=== PATIENT | female | born 1960 | race Caucasian/White ===

== ENCOUNTER 2019-05-12 14:58 | Observation (INO) | payer OTHER ==
[~2019-05-12] VITALS: Ht 160 cm; Wt 74.4 kg
[2019-05-12] MEDS ORDERED: 0.9 % SOD CHL for STERILE FIELD 10 ML DISP.SYRIN. ONE (16:25)
--- NOTE | 2019-05-12 16:50 | PHYS DOC ---
Past Medical History Past Medical History: Cancer Additional Past Medical Histor: BREAST CANCER Additional Past Surgical Histo: BILATERAL MASTECTOMY Alcohol Use: None Drug Use: None Adult General Chief Complaint Chief Complaint: DIZZY/LIGHT HEADED HPI HPI Patient is a 58-year-old female who presents to the emergency department for evaluation. The patient states that she has a history of breast cancer in the past, and developed a recurrence of breast cancer, with spread to her left chest wall, and underwent a bilateral mastectomy about 3 weeks ago. She states that she developed some paresthesias in the right side of her face, which, over 15 minutes, progressed to involve the entire right side of her body. She did not lose any motor function but reported difficulty ambulating with her right leg secondary to the paresthesias and decreased sensation. She denies any pain, including a headache, or any vision changes. She does not have any true muscle weakness. She denies any new dizziness but reports chronic dizziness. There are no alleviating or exacerbating factors to her symptoms otherwise. She denies any chest pain, headache currently, abdominal pain, nausea, or vomiting. Review of Systems Review of Systems Constitutional: Denies fever or chills [] Eyes: Denies change in visual acuity, redness, or eye pain [] HENT: Denies nasal congestion or sore throat [] Respiratory: Denies cough or shortness of breath [] Cardiovascular:The patient denies any shortness of breath, chest pain, palpitations, or orthopnea [] GI: Denies abdominal pain, nausea, vomiting, bloody stools or diarrhea [] : Denies dysuria or hematuria [] Musculoskeletal: Denies back pain or joint pain [] Integument: Denies rash or skin lesions [] Neurologic: No additional information not addressed in HPI [] Endocrine: Denies polyuria or polydipsia [] All other systems were reviewed and found to be within normal limits, except as documented in this note. Current Medications Current Medications Current Medications Medications (Trade) Dose Ordered Sig/Gudelia Start Time Stop Time Status Last Admin Dose Admin Info (CONTRAST GIVEN -- Rx MONITORING) 1 each PRN DAILY PRN 05/12/19 18:30 05/14/19 18:29 Iohexol (Omnipaque 350 Mg/ml) 75 ml 1X ONCE 05/12/19 18:15 05/12/19 18:18 DC 05/12/19 18:18 75 ML Sodium Chloride (NORMAL SALINE FLUSH for STERILE FIELD) 10 ml STK-MED ONCE 05/12/19 16:25 05/12/19 16:26 DC Allergies Allergies Allergies Coded Allergies Type Severity Reaction Last Updated Verified No Known Drug Allergies 05/12/19 No Physical Exam Physical Exam PHYSICAL EXAM: CONSTITUTIONAL: Well developed, well nourished HEAD: normocephalic, atraumatic EENT: PERRL, EOMI. Conjunctivae normal color, sclerae non-icteric; moist mucous membranes. NECK: Supple, non-tender; no meningismus. LUNGS: Lungs CTA, breathing even and unlabored. Normal air movement. HEART: Regular rate and rhythm, no murmur CHEST: No deformity; non-tender ABDOMEN: The abdomen is soft, and non-tender, no masses or bruits. EXTREM: Normal ROM; no deformity, no calf tenderness. Normal pulses palpable in all extremities. There is no pedal edema. SKIN: No rash; no diaphoresis NEURO: Alert; normal speech and cognition; CN's grossly intact; strength grossly intact without focal deficit. There is no reproducible sensory deficit although the patient does report some generalized subjective paresthesias on the right side of her body. Plupfk-[id number] and heel cuba testing is normal. Visual Michael are intact by confrontation. NIH stroke scale score is 0. BACK: No CVA TTP. Current Patient Data Vital Signs Vital Signs Date Time Temp Pulse Resp B/P (MAP) Pulse Ox O2 Delivery O2 Flow Rate FiO2 05/12/19 15:41 97.8 94 16 147/73 (97) 98 Room Air 97.8 Lab Values Laboratory Tests Test 05/12/19 17:20 White Blood Count 6.9 x10^3/uL (4.0-11.0) Red Blood Count 4.17 x10^6/uL (3.50-5.40) Hemoglobin 13.8 g/dL (12.0-15.5) Hematocrit 40.3 % (36.0-47.0) Mean Corpuscular Volume 97 fL (79-100) Mean Corpuscular Hemoglobin 33 pg (25-35) Mean Corpuscular Hemoglobin Concent 34 g/dL (31-37) Red Cell Distribution Width 13.6 % (11.5-14.5) Platelet Count 209 x10^3/uL (140-400) Neutrophils (%) (Auto) 66 % (31-73) Lymphocytes (%) (Auto) 23 % (24-48) L Monocytes (%) (Auto) 8 % (0-9) Eosinophils (%) (Auto) 2 % (0-3) Basophils (%) (Auto) 1 % (0-3) Neutrophils # (Auto) 4.6 x10^3/uL (1.8-7.7) Lymphocytes # (Auto) 1.6 x10^3/uL (1.0-4.8) Monocytes # (Auto) 0.6 x10^3/uL (0.0-1.1) Eosinophils # (Auto) 0.1 x10^3/uL (0.0-0.7) Basophils # (Auto) 0.1 x10^3/uL (0.0-0.2) Sodium Level 141 mmol/L (136-145) Potassium Level 3.9 mmol/L (3.5-5.1) Chloride Level 104 mmol/L (98-107) Carbon Dioxide Level 27 mmol/L (21-32) Anion Gap 10 (6-14) Blood Urea Nitrogen 14 mg/dL (7-20) Creatinine 0.7 mg/dL (0.6-1.0) Estimated GFR (Cockcroft-Gault) 86.6 BUN/Creatinine Ratio 20 (6-20) Glucose Level 101 mg/dL (70-99) H Calcium Level 9.0 mg/dL (8.5-10.1) Magnesium Level 2.0 mg/dL (1.8-2.4) Total Bilirubin 0.2 mg/dL (0.2-1.0) Aspartate Amino Transferase (AST) 24 U/L (15-37) Alanine Aminotransferase (ALT) 38 U/L (14-59) Alkaline Phosphatase 89 U/L (46-116) Troponin I Quantitative < 0.017 ng/mL (0.000-0.055) Total Protein 6.9 g/dL (6.4-8.2) Albumin 4.1 g/dL (3.4-5.0) Albumin/Globulin Ratio 1.5 (1.0-1.7) Laboratory Tests 05/12/19 17:20 Laboratory Tests 05/12/19 17:20 EKG EKG Normal sinus rhythm with a normal rate, normal axis, normal intervals, there are no acute ischemic ST/T changes. There is baseline artifact present Radiology/Procedures Radiology/Procedures [] Course & Med Decision Making Course & Med Decision Making Pertinent Labs and Imaging studies reviewed. (See chart for details) []7:00 PM: Preliminary report from radiology shows no acute abnormality on the patient's CT, full reportedly follow-up. Discussed the case with the hospitalist who will admit the patient for further evaluation Dragon Disclaimer Dragon Disclaimer This electronic medical record was generated, in whole or in part, using a voice recognition dictation system. Departure Departure Impression: Primary Impression: Paresthesias Disposition: ADMITTED INPATIENT Admitting Physician: ZACHARIAH Condition: STABLE Referrals: UNKNOWN PCP NAME (PCP) CYNTHIA HUSAIN MD May 12, 2019 16:50
[2019-05-12 17:27] LABS: BASO # 0.1 x10^3/uL (0.0-0.2); BASO % 1 % (0-3); EOS # 0.1 x10^3/uL (0.0-0.7); EOS % 2 % (0-3); HEMATOCRIT 40.3 % (36.0-47.0); HEMOGLOBIN 13.8 g/dL (12.0-15.5); LYMPH # 1.6 x10^3/uL (1.0-4.8); LYMPH % 23 % (24-48); MEAN CORPUSCULAR HEMOGLOBIN 33 pg (25-35); MEAN CORPUSCULAR HGB CONC 34 g/dL (31-37); MEAN CORPUSCULAR VOLUME 97 fL (79-100); MONO # 0.6 x10^3/uL (0.0-1.1); MONO % 8 % (0-9); NEUT # 4.6 x10^3/uL (1.8-7.7); NEUT % 66 % (31-73); PLATELET COUNT 209 x10^3/uL (140-400); RED BLOOD COUNT 4.17 x10^6/uL (3.50-5.40); RED CELL DISTRIBUTION WIDTH 13.6 % (11.5-14.5); WHITE BLOOD COUNT 6.9 x10^3/uL (4.0-11.0)
[2019-05-12 17:44] LABS: CREATININE 0.7 mg/dL (0.6-1.0); GFR 86.6; POTASSIUM 3.9 mmol/L (3.5-5.1)
[2019-05-12 17:49] LABS: ALBUMIN 4.1 g/dL (3.4-5.0); ALBUMIN/GLOBULIN RATIO 1.5 (1.0-1.7); TOTAL BILIRUBIN 0.2 mg/dL (0.2-1.0); TOTAL PROTEIN 6.9 g/dL (6.4-8.2)
[2019-05-12] MEDS ORDERED: IOHEXOL 350 MG/ML 100 ML VIAL. IV ONE (18:15)
[2019-05-12] MEDS ORDERED: CONTRAST GIVEN. MC PRN (18:30)
--- NOTE | 2019-05-12 18:49 | RAD ---
CT HEAD WO/W CONTRAST History: Right-sided paresthesias, history of breast cancer Comparison: None. Technique: Pre and postcontrast CT imaging was performed of the head. Exposure: One or more of the following individualized dose reduction techniques were utilized for this examination: 1. Automated exposure control 2. Adjustment of the mA and/or kV according to patient size 3. Use of iterative reconstruction technique. Findings: There is no evidence of acute intracranial hemorrhage. There is no intra-axial mass effect, midline shift, extra-axial fluid collection. No convincing nodular parenchymal or leptomeningeal enhancement is identified by CT. There is probable small left frontal developmental venous anomaly. Ventricular size is within normal limits. There is mild prominence of bifrontal subarachnoid spaces. Mastoid air cells and visualized paranasal sinuses are aerated. No acute calvarial abnormality is identified. There is small left frontal osteoma above the left orbit. Impression: 1. No acute intracranial abnormality is identified. No convincing abnormal intracranial enhancement is identified by CT, smaller lesions better detected by MRI. Electronically signed by: Daniel Todd MD (05/12/2019 6:46 PM) [facility]
--- NOTE | 2019-05-12 19:12 | RAD ---
Portable AP chest. HISTORY: Stroke like symptoms AP view was taken of the chest. The Port-A-Cath on the right in good position. Heart is normal in size. There is no pleural effusion. There are no confluent infiltrates. IMPRESSION: 1. No acute infiltrates. Electronically signed by: Ancelmo Galvin MD (05/12/2019 7:08 PM) [id number]
[2019-05-12] MEDS ORDERED: ASPIRIN CHEWABLE 81 MG TABLET. PO ONE (19:15)
--- NOTE | 2019-05-12 19:20 | RAD ---
STUDY: CT angiography of the head and neck INDICATION: Right-sided paresthesias. COMPARISON: None. TECHNIQUE: Axial CT imaging of the head and neck utilizing angiography protocol and performed after the intravenous administration of 75 cc Omnipaque 350 contrast. Multiplanar reformats and 3D MIP acquisitions were obtained. Encountered areas of stenosis are measured per NASCET criteria. One or more of the following individualized dose reduction techniques were utilized for this examination: 1. Automated exposure control 2. Adjustment of the mA and/or kV according to patient size 3. Use of iterative reconstruction technique. FINDINGS: CTA NECK: Patent great vessel origins. Patent extracranial vertebral arteries. Patent bilateral common carotid arteries. Calcified and noncalcified atheromatous plaque at both carotid bulbs without flow-limiting stenosis. CTA HEAD: Patent intracranial internal carotid arteries through the terminus bilaterally. 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 No flow-limiting stenosis, branch vessel occlusion or discrete aneurysm seen to involve the middle or anterior cerebral arteries. Trifurcated anterior cerebral artery configuration noted. Patent intracranial vertebral arteries both of which contribute to basilar flow. The basilar artery is patent. No flow-limiting stenosis, branch vessel occlusion or discrete aneurysm seen to involve the posterior cerebral circulation. Patent dural sinuses and major intracerebral veins. MISCELLANEOUS: Right chest wall Port-A-Cath. Multinodular thyroid. The left thyroid lobe nodules the largest measuring 1.6 cm. The right thyroid lobe nodule measures up to 1.2 cm. No cervical chain adenopathy. Scattered degenerative changes throughout the cervical spine suspected moderate central canal stenosis at C5-C6 more so than C4-C5. Bony neural foraminal encroachment at multiple levels. Small left superior orbital rim osteoma. Small bony excrescence off the inner table of the left frontal calvarium. Very small calvarial lucency in the region of the coronal suture on the left felt unlikely to represent a significant finding given no similar abnormality seen elsewhere. IMPRESSION: 1. No vascular abnormality throughout the neck or head to account for the patient's reported paresthesias. No flow-limiting stenosis or branch vessel occlusion. 2. 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 3. Left thyroid nodule measuring just over 1.5 cm. Given size, eventual thyroid sonography is recommended. Small right thyroid lobe nodule noted. 4. Additional chronic findings as above. Electronically signed by: CHI GIL MD (05/12/2019 7:17 PM) [id number]
--- NOTE | 2019-05-12 20:30 | NUR ---
The patient, ELIZABETH RICHARD, 58 y/o, F admitted by KEITH BENAVIDEZ MD, was given written information regarding hospital policies, unit procedures and contact persons. Valuables were checked and left in the room.
--- NOTE | 2019-05-12 21:44 | PDOC1 ---
History and Physical Date of Admission Date of Admission DATE: 05/12/19 TIME: 21:39 Identification/Chief Complaint Chief Complaint Right sided numbness Source Source: Patient History of Present Illness History of Present Illness Ms [id number] female w/ PMHx breast cancer 2018 now s/p bilateral mastectomy 3 weeks ago noted also with invasion of her left chest wall. She states that she developed some paresthesias in the right side of her face, which, over 15 minutes, progressed to involve the entire right side of her body earlier today on her way out of work. She did not lose any motor function but reported difficulty ambulating with her right leg secondary to the paresthesias and decreased sensation and did have difficulty lifting it during the entire 30 minute period it took until resolution. She denies any pain, including a headache, or any vision changes, no loss of bowel or bladder function. No prior neurologic history. She denies any new dizziness but reports chronic dizziness. There are no alleviating or exacerbating factors to her symptoms otherwise. She denies any chest pain, headache currently, abdominal pain, nausea, or vomiting. CT head in ED negative for intracranial pathology and CTA as well. Incidental 1.5cm thyroid nodule was noted. She is very hesitant to have MRI at our facility given her symptoms resolved and she is out of insurance network. Wishes to discharge in AM and have MRI outpatient, preferably at [facility] where her oncologist, Dr. Rebollar is located. She is somewhat anxious and relates her history of breast cancer over the past year and the diagnosis of her son with Wong Sarcoma. Past Medical History Cardiovascular: No pertinent hx Pulmonary: No pertinent hx GI: No pertinent hx Heme/Onc: Cancer (Breast cancer) Hepatobiliary: No pertinent hx Psych: No pertinent hx Rheumatologic: No pertinent hx Infectious disease: No pertinent hx ENT: No pertinent hx Renal/: No pertinent hx Endocrine: No pertinent hx Dermatology: No pertinent hx Past Surgical History Past Surgical History: Mastectomy (Bilateral) Family History Family History: Cancer (Wong sarcoma) Social History Smoke: No ALCOHOL: none Drugs: None Current Problem List Problem List Problems Medical Problems: (1) Paresthesias Status: Acute Current Medications Current Medications Current Medications Sodium Chloride (NORMAL SALINE FLUSH for STERILE FIELD) 10 ml STK-MED ONCE .ROUTE ; Start 05/12/19 at 16:25; Stop 05/12/19 at 16:26; Status DC Iohexol (Omnipaque 350 Mg/ml) 75 ml 1X ONCE IV Last administered on 05/12/19at 18:18; Start 05/12/19 at 18:15; Stop 05/12/19 at 18:18; Status DC Info (CONTRAST GIVEN -- Rx MONITORING) 1 each PRN DAILY PRN MC SEE COMMENTS; Start 05/12/19 at 18:30; Stop 05/14/19 at 18:29 Aspirin (Children'S Aspirin) 324 mg 1X ONCE PO Last administered on 05/12/19at 19:24; Start 05/12/19 at 19:15; Stop 05/12/19 at 19:16; Status DC Trazodone HCl (Desyrel) 150 mg QHS PO ; Start 05/12/19 at 22:00 Allergies Allergies: Coded Allergies: No Known Drug Allergies (Unverified , 05/12/19) ROS General: No: Chills, Night Sweats, Fatigue, Malaise, Appetite, Other PSYCHOLOGICAL ROS: YES: Anxiety; No: Behavioral Disorder, Concentration difficultie, Decreased libido, Depression, Disorientation, Hallucinations, Hostility, Irritablity, Memory difficulties, Mood Swings, Obsessive thoughts, Physical abuse, Sexual abuse, Sleep disturbances, Suicidal ideation, Other Eyes: No Blurry vision, No Decreased vision, No Double vision, No Dry eyes, No Excessive tearing, No Eye Pain, No Itchy Eyes, No Loss of vision, No Photophobia, No Scotomata, No Uses contacts, No Uses glasses, No Other HEENT: No: Heacaches, Visual Changes, Hearing change, Nasal congestion, Nasal discharge, Oral lesions, Sinus pain, Sore Throat, Epistaxis, Sneezing, Snoring, Tinnitus, Vertigo, Vocal changes, Other ALLERGY AND IMMUNOLOGY: No: Hives, Insect Bite Sensitivity, Itchy/Watery Eyes, Nasal Congestion, Post Nasal Drip, Seasonal Allergies, Other Hematological and Lymphatic: No: Bleeding Problems, Blood Clots, Blood Transfusions, Brusing, Night Sweats, Pallor, Swollen Lymph Nodes, Other ENDOCRINE: No: Breast Changes, Galactorrhea, Hair Pattern Changes, Hot Flashes, Malaise/lethargy, Mood Swings, Palpitations, Polydipsia/polyuria, Skin Changes, Temperature Intolerance, Unexpected Weight Changes, Other Breast: No New/Changing Breast Lumps, No Nipple changes, No Nipple discharge, No Other Respiratory: No: Cough, Hemoptysis, Orthopnea, Pleuritic Pain, Shortness of breath, SOB with excertion, Sputum Changes, Stridor, Tachypnea, Wheezing, Other Cardiovascular: No Chest Pain, No Palpitations, No Orthopnea, No Paroxysmal Noc. Dyspnea, No Edema, No Lt Headedness, No Other Gastrointestinal: No Nausea, No Vomiting, No Abdominal Pain, No Diarrhea, No Constipation, No Melena, No Hematochezia, No Other Genitourinary: No Dysuria, No Frequency, No Incontinence, No Hematuria, No Retention, No Discharge, No Urgency, No Pain, No Flank Pain, No Other, No , No , No , No , No , No , No Musculoskeletal: No Gait Disturbance, No Joint Pain, No Joint Stiffness, No Joint Swelling, No Muscle Pain, No Muscular Weakness, No Pain In:, No Swelling In:, No Other Neurological: No Behavorial Changes, No Bowel/Bladder ControlChng, No Confusion, No Dizziness, No Gait Disturbance, No Headaches, No Impaired Coord/balance, No Memory Loss, No Numbness/Tingling, No Seizures, No Speech Problems, No Tremors, No Visual Changes, No Weakness, No Other Skin: No Dry Skin, No Eczema, No Hair Changes, No Lumps, No Mole Changes, No Mottling, No Nail Changes, No Pruritus, No Rash, No Skin Lesion Changes, No Other, No Acne Physical Exam General: Alert, Oriented X3, Cooperative, No acute distress HEENT: Atraumatic, PERRLA, EOMI, Mucous membr. moist/pink Lungs: Clear to auscultation, Normal air movement Heart: S1S2, RRR, no thrills, no rubs, no gallops, no murmurs, other (Right port-a-cath in chest) Abdomen: Normal bowel sounds, Soft, No tenderness, No hepatosplenomegaly, No masses Rectal Exam: not examined Extremities: No clubbing, No cyanosis, No edema, Normal pulses, No tenderness/swelling Skin: No rashes, No breakdown, No significant lesion Neuro: Normal gait, Normal speech, Strength at 5/5 X4 ext, Normal tone, Sensation intact, Cranial nerves 3-12 NL, Reflexes 2+ Psych/Mental Status: Mental status NL, Mood NL Vitals Vitals Vital Signs Date Time Temp Pulse Resp B/P (MAP) Pulse Ox O2 Delivery O2 Flow Rate FiO2 05/12/19 15:41 97.8 94 16 147/73 (97) 98 Room Air 97.8 Labs Labs Laboratory Tests Test 05/12/19 17:20 White Blood Count 6.9 x10^3/uL (4.0-11.0) Red Blood Count 4.17 x10^6/uL (3.50-5.40) Hemoglobin 13.8 g/dL (12.0-15.5) Hematocrit 40.3 % (36.0-47.0) Mean Corpuscular Volume 97 fL (79-100) Mean Corpuscular Hemoglobin 33 pg (25-35) Mean Corpuscular Hemoglobin Concent 34 g/dL (31-37) Red Cell Distribution Width 13.6 % (11.5-14.5) Platelet Count 209 x10^3/uL (140-400) Neutrophils (%) (Auto) 66 % (31-73) Lymphocytes (%) (Auto) 23 % (24-48) Monocytes (%) (Auto) 8 % (0-9) Eosinophils (%) (Auto) 2 % (0-3) Basophils (%) (Auto) 1 % (0-3) Neutrophils # (Auto) 4.6 x10^3/uL (1.8-7.7) Lymphocytes # (Auto) 1.6 x10^3/uL (1.0-4.8) Monocytes # (Auto) 0.6 x10^3/uL (0.0-1.1) Eosinophils # (Auto) 0.1 x10^3/uL (0.0-0.7) Basophils # (Auto) 0.1 x10^3/uL (0.0-0.2) Sodium Level 141 mmol/L (136-145) Potassium Level 3.9 mmol/L (3.5-5.1) Chloride Level 104 mmol/L (98-107) Carbon Dioxide Level 27 mmol/L (21-32) Anion Gap 10 (6-14) Blood Urea Nitrogen 14 mg/dL (7-20) Creatinine 0.7 mg/dL (0.6-1.0) Estimated GFR (Cockcroft-Gault) 86.6 BUN/Creatinine Ratio 20 (6-20) Glucose Level 101 mg/dL (70-99) Calcium Level 9.0 mg/dL (8.5-10.1) Magnesium Level 2.0 mg/dL (1.8-2.4) Total Bilirubin 0.2 mg/dL (0.2-1.0) Aspartate Amino Transf (AST/SGOT) 24 U/L (15-37) Alanine Aminotransferase (ALT/SGPT) 38 U/L (14-59) Alkaline Phosphatase 89 U/L (46-116) Troponin I Quantitative < 0.017 ng/mL (0.000-0.055) Total Protein 6.9 g/dL (6.4-8.2) Albumin 4.1 g/dL (3.4-5.0) Albumin/Globulin Ratio 1.5 (1.0-1.7) Laboratory Tests Test 05/12/19 17:20 White Blood Count 6.9 x10^3/uL (4.0-11.0) Red Blood Count 4.17 x10^6/uL (3.50-5.40) Hemoglobin 13.8 g/dL (12.0-15.5) Hematocrit 40.3 % (36.0-47.0) Mean Corpuscular Volume 97 fL (79-100) Mean Corpuscular Hemoglobin 33 pg (25-35) Mean Corpuscular Hemoglobin Concent 34 g/dL (31-37) Red Cell Distribution Width 13.6 % (11.5-14.5) Platelet Count 209 x10^3/uL (140-400) Neutrophils (%) (Auto) 66 % (31-73) Lymphocytes (%) (Auto) 23 % (24-48) Monocytes (%) (Auto) 8 % (0-9) Eosinophils (%) (Auto) 2 % (0-3) Basophils (%) (Auto) 1 % (0-3) Neutrophils # (Auto) 4.6 x10^3/uL (1.8-7.7) Lymphocytes # (Auto) 1.6 x10^3/uL (1.0-4.8) Monocytes # (Auto) 0.6 x10^3/uL (0.0-1.1) Eosinophils # (Auto) 0.1 x10^3/uL (0.0-0.7) Basophils # (Auto) 0.1 x10^3/uL (0.0-0.2) Sodium Level 141 mmol/L (136-145) Potassium Level 3.9 mmol/L (3.5-5.1) Chloride Level 104 mmol/L (98-107) Carbon Dioxide Level 27 mmol/L (21-32) Anion Gap 10 (6-14) Blood Urea Nitrogen 14 mg/dL (7-20) Creatinine 0.7 mg/dL (0.6-1.0) Estimated GFR (Cockcroft-Gault) 86.6 BUN/Creatinine Ratio 20 (6-20) Glucose Level 101 mg/dL (70-99) Calcium Level 9.0 mg/dL (8.5-10.1) Magnesium Level 2.0 mg/dL (1.8-2.4) Total Bilirubin 0.2 mg/dL (0.2-1.0) Aspartate Amino Transf (AST/SGOT) 24 U/L (15-37) Alanine Aminotransferase (ALT/SGPT) 38 U/L (14-59) Alkaline Phosphatase 89 U/L (46-116) Troponin I Quantitative < 0.017 ng/mL (0.000-0.055) Total Protein 6.9 g/dL (6.4-8.2) Albumin 4.1 g/dL (3.4-5.0) Albumin/Globulin Ratio 1.5 (1.0-1.7) Images Images CT head - There is no evidence of acute intracranial hemorrhage. There is no intra-axial mass effect, midline shift, extra-axial fluid collection. No convincing nodular parenchymal or leptomeningeal enhancement is identified by CT. There is probable small left frontal developmental venous anomaly. Ventricular size is within normal limits. There is mild prominence of bifrontal subarachnoid spaces. Mastoid air cells and visualized paranasal sinuses are aerated. No acute calvarial abnormality is identified. There is small left frontal osteoma above the left orbit. Impression: 1. No acute intracranial abnormality is identified. No convincing abnormal intracranial enhancement is identified by CT, smaller lesions better detected by MRI. CTA NECK: Patent great vessel origins. Patent extracranial vertebral arteries. Patent bilateral common carotid arteries. Calcified and noncalcified atheromatous plaque at both carotid bulbs without flow-limiting stenosis. CTA HEAD: Patent intracranial internal carotid arteries through the terminus bilaterally. 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 No flow-limiting stenosis, branch vessel occlusion or discrete aneurysm seen to involve the middle or anterior cerebral arteries. Trifurcated anterior cerebral artery configuration noted. Patent intracranial vertebral arteries both of which contribute to basilar flow. The basilar artery is patent. No flow-limiting stenosis, branch vessel occlusion or discrete aneurysm seen to involve the posterior cerebral circulation. Patent dural sinuses and major intracerebral veins. MISCELLANEOUS: Right chest wall Port-A-Cath. Multinodular thyroid. The left thyroid lobe nodules the largest measuring 1.6 cm. The right thyroid lobe nodule measures up to 1.2 cm. No cervical chain adenopathy. Scattered degenerative changes throughout the cervical spine suspected moderate central canal stenosis at C5-C6 more so than C4-C5. Bony neural foraminal encroachment at multiple levels. Small left superior orbital rim osteoma. Small bony excrescence off the inner table of the left frontal calvarium. Very small calvarial lucency in the region of the coronal suture on the left felt unlikely to represent a significant finding given no similar abnormality seen elsewhere. IMPRESSION: 1. No vascular abnormality throughout the neck or head to account for the patient's reported paresthesias. No flow-limiting stenosis or branch vessel occlusion. 2. 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 3. Left thyroid nodule measuring just over 1.5 cm. Given size, eventual thyroid sonography is recommended. Small right thyroid lobe nodule noted. VTE Prophylaxis Ordered VTE Prophylaxis Devices: No VTE Pharmacological Prophylaxi: Yes Assessment/Plan Assessment/Plan A/P: Right leg weakness - transient, resolved on its own. ASA, statin. Consult neurology. Given these TIA symptoms she is at increased risk for another event. Telemetry to r/o cardiac arrhthymia as cause Right sided numbness - as above, resolved without treatment. Will observe Breast cancer - I am not aware of the path, though by history sounds to be stage III with invasion of chest wall. This is her first head imaging. No intracranial masses noted. FEN - General diet PPX - lovenox FULL CODE Dispo - observation for TIA. Patient would prefer outpatient MRI at [facility] KEITH BENAVIDEZ MD May 12, 2019 21:44
[2019-05-12] MEDS ORDERED: traZODone 100 MG TABLET. PO SCH (22:00)
[2019-05-12] MEDS ORDERED: ENOXAPARIN 40 MG/0.4 ML SYRINGE. SQ SCH (22:00)
[2019-05-12 23:36] VITALS: BP 131/76
[2019-05-12] MEDS ORDERED: ATORVASTATIN CALCIUM 40 MG TABLET. PO SCH (23:45)
[2019-05-13 03:37] VITALS: BP 120/68
--- NOTE | 2019-05-13 05:34 | EKG ---
[facility] [address] [place] [address] Test Date: 2019-05-12 Test Time: 16:59:12 Pat Name: ELIZABETH RICHARD Department: Room: Gender: F [employer] Field Service Technician: : 1960 Requested By: CYNTHIA HUSAIN Order Number: [id number] Reading MD: Measurements Intervals [place] Rate: 86 P: 36 GA: 156 QRS: 16 QRSD: 78 T: 53 QT: 368 QTc: 443 Interpretive Statements SINUS RHYTHM NORMAL ECG RI6.01 No previous ECG available for comparison
[2019-05-13 07:55] VITALS: BP 124/79
[2019-05-13] MEDS ORDERED: ASPIRIN 325 MG TABLET PO SCH (08:00)
--- NOTE | 2019-05-13 09:44 | PDOC2 ---
CONSULT Date of Consult Date of Consult DATE: 05/13/19 TIME: 09:33 Reason for consultation: breast cancer Consult: Hematology oncology, Dr. Carmen Walls History of present illness: she is a 58-year-old female with sudden onset of right face numbness, moderate, acute, that progressed and worsened over time to involve her right side with paresthesias and some difficulty walking and slight weakness, this lasted about 30 minutes, completely resolved and improved spo ntaneously, and she does have some bilateral peripheral neuropathy post chemotherapy with history of breast cancer that has remained stable. She would like to be discharged today, CT angiogram of the head and neck did not show anything to account for her symptoms and she has declined MRI here [facility]. Past medical history: early stage triple negative breast cancer of the left breast in 2017 per report treated with lumpectomy and chemotherapy, she declined radiotherapy October 2018 left breast local recurrence of triple negative breast cancer treated with neoadjuvant chemotherapy 6 cycles completed 6 weeks ago followed by bilateral mastectomy completed 3 weeks ago, pending radiotherapy, she tells me she has been genetically tested and negative though does have a son with sarcoma she also has a history of postchemotherapy peripheral neuropathy, incidentally noted thyroid nodule, and is 2 para 2 Past surgical history: breast biopsy left 2, left breast lumpectomy, bilateral mastectomy, port placement, bilateral tubal ligation Allergies: no known drug allergies Medications: See attached list Social history: 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, no tobacco or alcohol or drugs, lives with her son Family history: her son developed Wong sarcoma at 18 years old 4 years ago, they believe he is cured Review of systems: bilateral lower extremity peripheral neuropathy post chemotherapy, ongoing stress related to working full-time with her current treatment, alopecia, otherwise 10 point review of systems negative Physical exam: Vitals reviewed Gen.: Well-nourished and well-developed in no acute distress, alopecia, resting in bed HEENT: mucous membranes moist, head normocephalic atraumatic Neck: Supple, range of motion normal Lungs: Breathing comfortably on room air, no evidence of respiratory distress chest: Port Upper chest covered Heart: Regular rate and rhythm Abdomen: Soft, nontender, nondistended Extremities: No cyanosis or edema Skin: No obvious rashes or skin breakdown Neuro: Alert and oriented 3 Psych: Normal mood and affect Lab reviewed: CBC normal, CBC normal except glucose of 101, normal B12 and TSH, troponin negative Rads reviewed: chest x-ray shows no acute infiltrate Head CT shows no acute intracranial abnormality CT angio neck and head shows no stenosis occlusion or vascular abnormality to account for symptoms, 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 Assessment and Plan: she is a 58-year-old female with a history of recurrent left breast triple negative cancer per her report, she tells me lymph nodes were not involved, it has been recurrent locally, she declined radiotherapy at first but will be getting radiotherapy now, has had bilateral mastectomy, tells me genetic testing has been negative, I did encourage her to discuss with Dr. Reblolar to make sure she was tested for things that could include sarcoma in the family, and she was admitted with a TIA but thankfully sx have resolved and head imaging thus far is negative. TIA: Neurology has been consulted, she's currently doing well, on aspirin and statin, and can continue follow-up with primary care as needed and neurology as needed, with further imaging as needed based on neuro consult Regarding her breast cancer: I do recommend she continue follow-up with Dr Isabelle Rebollar at [facility] as she plans to do with radiotherapy as well, I do encourage her to bring her notes from this hospitalization including imaging reports for Dr. Rebollar to review Thyroid nodule: Thyroid ultrasound recommended as outpatient, this can be done through primary as needed Multiple ongoing stressors: She is applying for at least short-term disability which certainly sounds reasonable based on her history Thank you kindly for this consultation, and please do not hesitate to call with further questions. Past Medical History Cardiovascular: No pertinent hx Pulmonary: No pertinent hx GI: No pertinent hx Heme/Onc: Cancer (Breast cancer) Hepatobiliary: No pertinent hx Psych: No pertinent hx Rheumatologic: No pertinent hx Infectious disease: No pertinent hx ENT: No pertinent hx Renal/: No pertinent hx Endocrine: No pertinent hx Dermatology: No pertinent hx Past Surgical History Past Surgical History: Mastectomy (Bilateral) Family History Family History: Cancer (Wong sarcoma) Social History No ALCOHOL: none Drugs: None Current Problem List Problem List Problems Medical Problems: (1) Paresthesias Status: Acute Current Medications Current Medications Current Medications Sodium Chloride (NORMAL SALINE FLUSH for STERILE FIELD) 10 ml STK-MED ONCE .ROUTE ; Start 05/12/19 at 16:25; Stop 05/12/19 at 16:26; Status DC Iohexol (Omnipaque 350 Mg/ml) 75 ml 1X ONCE IV Last administered on 05/12/19at 18:18; Start 05/12/19 at 18:15; Stop 05/12/19 at 18:18; Status DC Info (CONTRAST GIVEN -- Rx MONITORING) 1 each PRN DAILY PRN MC SEE COMMENTS; Start 05/12/19 at 18:30; Stop 05/14/19 at 18:29 Aspirin (Children'S Aspirin) 324 mg 1X ONCE PO Last administered on 05/12/19at 19:24; Start 05/12/19 at 19:15; Stop 05/12/19 at 19:16; Status DC Trazodone HCl (Desyrel) 150 mg QHS PO Last administered on 05/12/19at 22:18; Start 05/12/19 at 22:00 Enoxaparin Sodium (Lovenox 40mg Syringe) 40 mg Q24H SQ Last administered on 05/12/19at 22:18; Start 05/12/19 at 22:00 Atorvastatin Calcium (Lipitor) 40 mg QHS PO Last administered on 05/12/19at 23:58; Start 05/12/19 at 23:45 Aspirin (Elida Aspirin) 325 mg DAILYWBKFT PO ; Start 05/13/19 at 08:00 Allergies Allergies: Coded Allergies: No Known Drug Allergies (Unverified , 05/12/19) Vitals VITALS Vital Signs Date Time Temp Pulse Resp B/P (MAP) Pulse Ox O2 Delivery O2 Flow Rate FiO2 05/13/19 07:55 98.1 76 18 124/79 (94) 98 Nasal Cannula 4.0 98.1 Labs Labs Laboratory Tests Test 05/12/19 17:20 White Blood Count 6.9 x10^3/uL (4.0-11.0) Red Blood Count 4.17 x10^6/uL (3.50-5.40) Hemoglobin 13.8 g/dL (12.0-15.5) Hematocrit 40.3 % (36.0-47.0) Mean Corpuscular Volume 97 fL (79-100) Mean Corpuscular Hemoglobin 33 pg (25-35) Mean Corpuscular Hemoglobin Concent 34 g/dL (31-37) Red Cell Distribution Width 13.6 % (11.5-14.5) Platelet Count 209 x10^3/uL (140-400) Neutrophils (%) (Auto) 66 % (31-73) Lymphocytes (%) (Auto) 23 % (24-48) Monocytes (%) (Auto) 8 % (0-9) Eosinophils (%) (Auto) 2 % (0-3) Basophils (%) (Auto) 1 % (0-3) Neutrophils # (Auto) 4.6 x10^3/uL (1.8-7.7) Lymphocytes # (Auto) 1.6 x10^3/uL (1.0-4.8) Monocytes # (Auto) 0.6 x10^3/uL (0.0-1.1) Eosinophils # (Auto) 0.1 x10^3/uL (0.0-0.7) Basophils # (Auto) 0.1 x10^3/uL (0.0-0.2) Sodium Level 141 mmol/L (136-145) Potassium Level 3.9 mmol/L (3.5-5.1) Chloride Level 104 mmol/L (98-107) Carbon Dioxide Level 27 mmol/L (21-32) Anion Gap 10 (6-14) Blood Urea Nitrogen 14 mg/dL (7-20) Creatinine 0.7 mg/dL (0.6-1.0) Estimated GFR (Cockcroft-Gault) 86.6 BUN/Creatinine Ratio 20 (6-20) Glucose Level 101 mg/dL (70-99) Calcium Level 9.0 mg/dL (8.5-10.1) Magnesium Level 2.0 mg/dL (1.8-2.4) Total Bilirubin 0.2 mg/dL (0.2-1.0) Aspartate Amino Transf (AST/SGOT) 24 U/L (15-37) Alanine Aminotransferase (ALT/SGPT) 38 U/L (14-59) Alkaline Phosphatase 89 U/L (46-116) Troponin I Quantitative < 0.017 ng/mL (0.000-0.055) Total Protein 6.9 g/dL (6.4-8.2) Albumin 4.1 g/dL (3.4-5.0) Albumin/Globulin Ratio 1.5 (1.0-1.7) Vitamin B12 Level 765 pg/mL (247-911) Thyroid Stimulating Hormone (TSH) 0.729 uIU/mL (0.358-3.74) Laboratory Tests Test 05/12/19 17:20 White Blood Count 6.9 x10^3/uL (4.0-11.0) Red Blood Count 4.17 x10^6/uL (3.50-5.40) Hemoglobin 13.8 g/dL (12.0-15.5) Hematocrit 40.3 % (36.0-47.0) Mean Corpuscular Volume 97 fL (79-100) Mean Corpuscular Hemoglobin 33 pg (25-35) Mean Corpuscular Hemoglobin Concent 34 g/dL (31-37) Red Cell Distribution Width 13.6 % (11.5-14.5) Platelet Count 209 x10^3/uL (140-400) Neutrophils (%) (Auto) 66 % (31-73) Lymphocytes (%) (Auto) 23 % (24-48) Monocytes (%) (Auto) 8 % (0-9) Eosinophils (%) (Auto) 2 % (0-3) Basophils (%) (Auto) 1 % (0-3) Neutrophils # (Auto) 4.6 x10^3/uL (1.8-7.7) Lymphocytes # (Auto) 1.6 x10^3/uL (1.0-4.8) Monocytes # (Auto) 0.6 x10^3/uL (0.0-1.1) Eosinophils # (Auto) 0.1 x10^3/uL (0.0-0.7) Basophils # (Auto) 0.1 x10^3/uL (0.0-0.2) Sodium Level 141 mmol/L (136-145) Potassium Level 3.9 mmol/L (3.5-5.1) Chloride Level 104 mmol/L (98-107) Carbon Dioxide Level 27 mmol/L (21-32) Anion Gap 10 (6-14) Blood Urea Nitrogen 14 mg/dL (7-20) Creatinine 0.7 mg/dL (0.6-1.0) Estimated GFR (Cockcroft-Gault) 86.6 BUN/Creatinine Ratio 20 (6-20) Glucose Level 101 mg/dL (70-99) Calcium Level 9.0 mg/dL (8.5-10.1) Magnesium Level 2.0 mg/dL (1.8-2.4) Total Bilirubin 0.2 mg/dL (0.2-1.0) Aspartate Amino Transf (AST/SGOT) 24 U/L (15-37) Alanine Aminotransferase (ALT/SGPT) 38 U/L (14-59) Alkaline Phosphatase 89 U/L (46-116) Troponin I Quantitative < 0.017 ng/mL (0.000-0.055) Total Protein 6.9 g/dL (6.4-8.2) Albumin 4.1 g/dL (3.4-5.0) Albumin/Globulin Ratio 1.5 (1.0-1.7) Vitamin B12 Level 765 pg/mL (247-911) Thyroid Stimulating Hormone (TSH) 0.729 uIU/mL (0.358-3.74) CARMEN WALLS MD May 13, 2019 09:44
--- NOTE | 2019-05-13 10:16 | PDOC ---
PROGRESS NOTES History of Present Illness History of Present Illness VTE Prophylaxis Ordered VTE Prophylaxis Devices: No VTE Pharmacological Prophylaxi: Yes DISCHARGE DX Assessment/Plan A/P: Right leg weakness - transient, . ASA, statin. Consult neurology. Given these TIA symptoms she is at increased risk for another event. Telemetry to r/o cardiac arrhthymia as cause Right sided numbness - as above, observe Breast cancer - stage III with invasion of chest wall. This is her first head imaging. No intracranial masses noted. FEN - General diet PPX - lovenox FULL CODE Dispo - observation for TIA. Patient would prefer outpatient MRI at [facility] [place] WITH NEUROLOGY recommend she continue follow-up with Dr Isabelle Rebollar at [facility] as she plans to do with radiotherapy as well, d/c planning 26 min Vitals Vitals Vital Signs Date Time Temp Pulse Resp B/P (MAP) Pulse Ox O2 Delivery O2 Flow Rate FiO2 05/13/19 07:55 98.1 76 18 124/79 (94) 98 Nasal Cannula 4.0 98.1 Physical Exam General: Alert, Oriented X3, Cooperative, No acute distress Heart: Regular rate Abdomen: Normal bowel sounds, Soft, No tenderness, No hepatosplenomegaly, No masses Extremities: No clubbing, No cyanosis, No edema, Normal pulses, No tenderness/swelling Skin: No rashes, No breakdown, No significant lesion Labs LABS Laboratory Tests Test 05/12/19 17:20 White Blood Count 6.9 x10^3/uL (4.0-11.0) Red Blood Count 4.17 x10^6/uL (3.50-5.40) Hemoglobin 13.8 g/dL (12.0-15.5) Hematocrit 40.3 % (36.0-47.0) Mean Corpuscular Volume 97 fL (79-100) Mean Corpuscular Hemoglobin 33 pg (25-35) Mean Corpuscular Hemoglobin Concent 34 g/dL (31-37) Red Cell Distribution Width 13.6 % (11.5-14.5) Platelet Count 209 x10^3/uL (140-400) Neutrophils (%) (Auto) 66 % (31-73) Lymphocytes (%) (Auto) 23 % (24-48) Monocytes (%) (Auto) 8 % (0-9) Eosinophils (%) (Auto) 2 % (0-3) Basophils (%) (Auto) 1 % (0-3) Neutrophils # (Auto) 4.6 x10^3/uL (1.8-7.7) Lymphocytes # (Auto) 1.6 x10^3/uL (1.0-4.8) Monocytes # (Auto) 0.6 x10^3/uL (0.0-1.1) Eosinophils # (Auto) 0.1 x10^3/uL (0.0-0.7) Basophils # (Auto) 0.1 x10^3/uL (0.0-0.2) Sodium Level 141 mmol/L (136-145) Potassium Level 3.9 mmol/L (3.5-5.1) Chloride Level 104 mmol/L (98-107) Carbon Dioxide Level 27 mmol/L (21-32) Anion Gap 10 (6-14) Blood Urea Nitrogen 14 mg/dL (7-20) Creatinine 0.7 mg/dL (0.6-1.0) Estimated GFR (Cockcroft-Gault) 86.6 BUN/Creatinine Ratio 20 (6-20) Glucose Level 101 mg/dL (70-99) Calcium Level 9.0 mg/dL (8.5-10.1) Magnesium Level 2.0 mg/dL (1.8-2.4) Total Bilirubin 0.2 mg/dL (0.2-1.0) Aspartate Amino Transf (AST/SGOT) 24 U/L (15-37) Alanine Aminotransferase (ALT/SGPT) 38 U/L (14-59) Alkaline Phosphatase 89 U/L (46-116) Troponin I Quantitative < 0.017 ng/mL (0.000-0.055) Total Protein 6.9 g/dL (6.4-8.2) Albumin 4.1 g/dL (3.4-5.0) Albumin/Globulin Ratio 1.5 (1.0-1.7) Vitamin B12 Level 765 pg/mL (247-911) Thyroid Stimulating Hormone (TSH) 0.729 uIU/mL (0.358-3.74) Assessment and Plan Assessmemt and Plan Problems Medical Problems: (1) Paresthesias Status: Acute Comment Review of Relevant I have reviewed the following items fransico (where applicable) has been applied. Labs Laboratory Tests Test 05/12/19 17:20 White Blood Count 6.9 x10^3/uL (4.0-11.0) Red Blood Count 4.17 x10^6/uL (3.50-5.40) Hemoglobin 13.8 g/dL (12.0-15.5) Hematocrit 40.3 % (36.0-47.0) Mean Corpuscular Volume 97 fL (79-100) Mean Corpuscular Hemoglobin 33 pg (25-35) Mean Corpuscular Hemoglobin Concent 34 g/dL (31-37) Red Cell Distribution Width 13.6 % (11.5-14.5) Platelet Count 209 x10^3/uL (140-400) Neutrophils (%) (Auto) 66 % (31-73) Lymphocytes (%) (Auto) 23 % (24-48) Monocytes (%) (Auto) 8 % (0-9) Eosinophils (%) (Auto) 2 % (0-3) Basophils (%) (Auto) 1 % (0-3) Neutrophils # (Auto) 4.6 x10^3/uL (1.8-7.7) Lymphocytes # (Auto) 1.6 x10^3/uL (1.0-4.8) Monocytes # (Auto) 0.6 x10^3/uL (0.0-1.1) Eosinophils # (Auto) 0.1 x10^3/uL (0.0-0.7) Basophils # (Auto) 0.1 x10^3/uL (0.0-0.2) Sodium Level 141 mmol/L (136-145) Potassium Level 3.9 mmol/L (3.5-5.1) Chloride Level 104 mmol/L (98-107) Carbon Dioxide Level 27 mmol/L (21-32) Anion Gap 10 (6-14) Blood Urea Nitrogen 14 mg/dL (7-20) Creatinine 0.7 mg/dL (0.6-1.0) Estimated GFR (Cockcroft-Gault) 86.6 BUN/Creatinine Ratio 20 (6-20) Glucose Level 101 mg/dL (70-99) Calcium Level 9.0 mg/dL (8.5-10.1) Magnesium Level 2.0 mg/dL (1.8-2.4) Total Bilirubin 0.2 mg/dL (0.2-1.0) Aspartate Amino Transf (AST/SGOT) 24 U/L (15-37) Alanine Aminotransferase (ALT/SGPT) 38 U/L (14-59) Alkaline Phosphatase 89 U/L (46-116) Troponin I Quantitative < 0.017 ng/mL (0.000-0.055) Total Protein 6.9 g/dL (6.4-8.2) Albumin 4.1 g/dL (3.4-5.0) Albumin/Globulin Ratio 1.5 (1.0-1.7) Vitamin B12 Level 765 pg/mL (247-911) Thyroid Stimulating Hormone (TSH) 0.729 uIU/mL (0.358-3.74) Laboratory Tests Test 05/12/19 17:20 White Blood Count 6.9 x10^3/uL (4.0-11.0) Red Blood Count 4.17 x10^6/uL (3.50-5.40) Hemoglobin 13.8 g/dL (12.0-15.5) Hematocrit 40.3 % (36.0-47.0) Mean Corpuscular Volume 97 fL (79-100) Mean Corpuscular Hemoglobin 33 pg (25-35) Mean Corpuscular Hemoglobin Concent 34 g/dL (31-37) Red Cell Distribution Width 13.6 % (11.5-14.5) Platelet Count 209 x10^3/uL (140-400) Neutrophils (%) (Auto) 66 % (31-73) Lymphocytes (%) (Auto) 23 % (24-48) Monocytes (%) (Auto) 8 % (0-9) Eosinophils (%) (Auto) 2 % (0-3) Basophils (%) (Auto) 1 % (0-3) Neutrophils # (Auto) 4.6 x10^3/uL (1.8-7.7) Lymphocytes # (Auto) 1.6 x10^3/uL (1.0-4.8) Monocytes # (Auto) 0.6 x10^3/uL (0.0-1.1) Eosinophils # (Auto) 0.1 x10^3/uL (0.0-0.7) Basophils # (Auto) 0.1 x10^3/uL (0.0-0.2) Sodium Level 141 mmol/L (136-145) Potassium Level 3.9 mmol/L (3.5-5.1) Chloride Level 104 mmol/L (98-107) Carbon Dioxide Level 27 mmol/L (21-32) Anion Gap 10 (6-14) Blood Urea Nitrogen 14 mg/dL (7-20) Creatinine 0.7 mg/dL (0.6-1.0) Estimated GFR (Cockcroft-Gault) 86.6 BUN/Creatinine Ratio 20 (6-20) Glucose Level 101 mg/dL (70-99) Calcium Level 9.0 mg/dL (8.5-10.1) Magnesium Level 2.0 mg/dL (1.8-2.4) Total Bilirubin 0.2 mg/dL (0.2-1.0) Aspartate Amino Transf (AST/SGOT) 24 U/L (15-37) Alanine Aminotransferase (ALT/SGPT) 38 U/L (14-59) Alkaline Phosphatase 89 U/L (46-116) Troponin I Quantitative < 0.017 ng/mL (0.000-0.055) Total Protein 6.9 g/dL (6.4-8.2) Albumin 4.1 g/dL (3.4-5.0) Albumin/Globulin Ratio 1.5 (1.0-1.7) Vitamin B12 Level 765 pg/mL (247-911) Thyroid Stimulating Hormone (TSH) 0.729 uIU/mL (0.358-3.74) Medications Current Medications Sodium Chloride (NORMAL SALINE FLUSH for STERILE FIELD) 10 ml STK-MED ONCE .ROUTE ; Start 05/12/19 at 16:25; Stop 05/12/19 at 16:26; Status DC Iohexol (Omnipaque 350 Mg/ml) 75 ml 1X ONCE IV Last administered on 05/12/19at 18:18; Start 05/12/19 at 18:15; Stop 05/12/19 at 18:18; Status DC Info (CONTRAST GIVEN -- Rx MONITORING) 1 each PRN DAILY PRN MC SEE COMMENTS; Start 05/12/19 at 18:30; Stop 05/14/19 at 18:29 Aspirin (Children'S Aspirin) 324 mg 1X ONCE PO Last administered on 05/12/19at 19:24; Start 05/12/19 at 19:15; Stop 05/12/19 at 19:16; Status DC Trazodone HCl (Desyrel) 150 mg QHS PO Last administered on 05/12/19at 22:18; Start 05/12/19 at 22:00 Enoxaparin Sodium (Lovenox 40mg Syringe) 40 mg Q24H SQ Last administered on 05/12/19at 22:18; Start 05/12/19 at 22:00 Atorvastatin Calcium (Lipitor) 40 mg QHS PO Last administered on 05/12/19at 23:58; Start 05/12/19 at 23:45 Aspirin (Elida Aspirin) 325 mg DAILYWBKFT PO ; Start 05/13/19 at 08:00 Vitals/I & O Vital Sign - Last 24 Hours 05/12/19 05/12/19 05/12/19 05/12/19 15:41 16:18 16:48 17:18 Temp 97.8 97.8 Pulse 94 97 85 83 Resp 16 28 B/P (MAP) 147/73 (97) Pulse Ox 98 98 98 97 O2 Delivery Room Air 05/12/19 05/12/19 05/12/19 05/13/19 17:48 20:30 23:36 03:37 Temp 98.0 98.8 98.0 98.8 Pulse 82 77 97 Resp 22 18 18 B/P (MAP) 131/76 (94) 120/68 (85) Pulse Ox 97 97 97 O2 Delivery Room Air Room Air Nasal Cannula O2 Flow Rate 4.0 05/13/19 07:55 Temp 98.1 98.1 Pulse 76 Resp 18 B/P (MAP) 124/79 (94) Pulse Ox 98 O2 Delivery Nasal Cannula O2 Flow Rate 4.0 GUERDA MCLEOD MD May 13, 2019 10:16
--- NOTE | 2019-05-13 11:38 | PDOC2 ---
NEUROLOGY CONSULT Date of Admission Date of Admission DATE: 05/13/19 TIME: 11:32 Reason for Consult Reason for Consult: TIA symptoms Referring Physician Referring Physician: Dr. Cr Source Source: Chart review, Patient History of Present Illness History of Present Illness The patient is a 58-year-old right-handed female with breast cancer who was out shopping and notice onset of right facial numbness followed by arm numbness and leg numbness spreading downward over at least 30 minutes. She felt anxious. She may have had some dizziness. There is no prior history of stroke, seizure, head injury, or headache. She has no history of migraines. She feels fine now. We are out of network, and she would like to be discharged and have workup as an outpatient. Past Medical History Heme/Onc: Cancer (breast) Past Surgical History Past Surgical History: Mastectomy, Tubal Ligation Family History Family History: No pertinent hx Social History Social History Single, office bookkeeper, no alcohol or tobacco Current Medications Current Medications Current Medications Sodium Chloride (NORMAL SALINE FLUSH for STERILE FIELD) 10 ml STK-MED ONCE .ROUTE ; Start 05/12/19 at 16:25; Stop 05/12/19 at 16:26; Status DC Iohexol (Omnipaque 350 Mg/ml) 75 ml 1X ONCE IV Last administered on 05/12/19at 18:18; Start 05/12/19 at 18:15; Stop 05/12/19 at 18:18; Status DC Info (CONTRAST GIVEN -- Rx MONITORING) 1 each PRN DAILY PRN MC SEE COMMENTS; Start 05/12/19 at 18:30; Stop 05/14/19 at 18:29 Aspirin (Children'S Aspirin) 324 mg 1X ONCE PO Last administered on 05/12/19at 19:24; Start 05/12/19 at 19:15; Stop 05/12/19 at 19:16; Status DC Trazodone HCl (Desyrel) 150 mg QHS PO Last administered on 05/12/19at 22:18; Start 05/12/19 at 22:00 Enoxaparin Sodium (Lovenox 40mg Syringe) 40 mg Q24H SQ Last administered on 05/12/19at 22:18; Start 05/12/19 at 22:00 Atorvastatin Calcium (Lipitor) 40 mg QHS PO Last administered on 05/12/19at 23:58; Start 05/12/19 at 23:45 Aspirin (Elida Aspirin) 325 mg DAILYWBKFT PO Last administered on 05/13/19at 11:04; Start 05/13/19 at 08:00 Allergies Allergies: Coded Allergies: No Known Drug Allergies (Unverified , 05/12/19) ROS Review of System Negative for fever, chills, weight loss, shortness of breath, chest pain, indigestion, hematochezia, melena, and dysuria. Full 14-point review of systems is negative. Physical Exam Physical Examination General: Well-developed, well-nourished white female in no acute distress HEENT: Normocephalic andatraumatic. Temporal arteriespulsatile and nontender. Neck: Supple without bruit, no meningismus Musculoskeletal: Stability:see neurologic. Gait exam:see neurologic. Tone:see neurologic.Strength:see neurologic. Neurological: Mental Status:intact, orientation, memory, attention span/concentration, language, fund of knowledge normal. Cranial Nerves:Pupils equal and reactive to light, extraocular movements areintact, visual [place] are full to confrontation. Facial sensation is normal. There is no facial asymmetry. Vestibulo-ocular reflex is intact. Palate elevates and tongue protrudes in midline. All other cranial related problems are negative except as mentioned before.Reflexes:2+ and symmetric with flexor plantar responses. Motor:5/5 strength with normal tone and bulk. Coordination:Finger-nose finger and bkmr-hk-prol testing are normal. Rapid alternating movements and fine finger movements are intact. Gait:Normal, including tandem. Sensory:Normal pinprick, vibration, light touch, proprioception. Vitals VITALS Vital Signs Date Time Temp Pulse Resp B/P (MAP) Pulse Ox O2 Delivery O2 Flow Rate FiO2 05/13/19 07:55 98.1 76 18 124/79 (94) 98 Nasal Cannula 4.0 98.1 Labs Labs Laboratory Tests Test 05/12/19 17:20 White Blood Count 6.9 x10^3/uL (4.0-11.0) Red Blood Count 4.17 x10^6/uL (3.50-5.40) Hemoglobin 13.8 g/dL (12.0-15.5) Hematocrit 40.3 % (36.0-47.0) Mean Corpuscular Volume 97 fL (79-100) Mean Corpuscular Hemoglobin 33 pg (25-35) Mean Corpuscular Hemoglobin Concent 34 g/dL (31-37) Red Cell Distribution Width 13.6 % (11.5-14.5) Platelet Count 209 x10^3/uL (140-400) Neutrophils (%) (Auto) 66 % (31-73) Lymphocytes (%) (Auto) 23 % (24-48) Monocytes (%) (Auto) 8 % (0-9) Eosinophils (%) (Auto) 2 % (0-3) Basophils (%) (Auto) 1 % (0-3) Neutrophils # (Auto) 4.6 x10^3/uL (1.8-7.7) Lymphocytes # (Auto) 1.6 x10^3/uL (1.0-4.8) Monocytes # (Auto) 0.6 x10^3/uL (0.0-1.1) Eosinophils # (Auto) 0.1 x10^3/uL (0.0-0.7) Basophils # (Auto) 0.1 x10^3/uL (0.0-0.2) Sodium Level 141 mmol/L (136-145) Potassium Level 3.9 mmol/L (3.5-5.1) Chloride Level 104 mmol/L (98-107) Carbon Dioxide Level 27 mmol/L (21-32) Anion Gap 10 (6-14) Blood Urea Nitrogen 14 mg/dL (7-20) Creatinine 0.7 mg/dL (0.6-1.0) Estimated GFR (Cockcroft-Gault) 86.6 BUN/Creatinine Ratio 20 (6-20) Glucose Level 101 mg/dL (70-99) Calcium Level 9.0 mg/dL (8.5-10.1) Magnesium Level 2.0 mg/dL (1.8-2.4) Total Bilirubin 0.2 mg/dL (0.2-1.0) Aspartate Amino Transf (AST/SGOT) 24 U/L (15-37) Alanine Aminotransferase (ALT/SGPT) 38 U/L (14-59) Alkaline Phosphatase 89 U/L (46-116) Troponin I Quantitative < 0.017 ng/mL (0.000-0.055) Total Protein 6.9 g/dL (6.4-8.2) Albumin 4.1 g/dL (3.4-5.0) Albumin/Globulin Ratio 1.5 (1.0-1.7) Vitamin B12 Level 765 pg/mL (247-911) Thyroid Stimulating Hormone (TSH) 0.729 uIU/mL (0.358-3.74) Laboratory Tests Test 05/12/19 17:20 White Blood Count 6.9 x10^3/uL (4.0-11.0) Red Blood Count 4.17 x10^6/uL (3.50-5.40) Hemoglobin 13.8 g/dL (12.0-15.5) Hematocrit 40.3 % (36.0-47.0) Mean Corpuscular Volume 97 fL (79-100) Mean Corpuscular Hemoglobin 33 pg (25-35) Mean Corpuscular Hemoglobin Concent 34 g/dL (31-37) Red Cell Distribution Width 13.6 % (11.5-14.5) Platelet Count 209 x10^3/uL (140-400) Neutrophils (%) (Auto) 66 % (31-73) Lymphocytes (%) (Auto) 23 % (24-48) Monocytes (%) (Auto) 8 % (0-9) Eosinophils (%) (Auto) 2 % (0-3) Basophils (%) (Auto) 1 % (0-3) Neutrophils # (Auto) 4.6 x10^3/uL (1.8-7.7) Lymphocytes # (Auto) 1.6 x10^3/uL (1.0-4.8) Monocytes # (Auto) 0.6 x10^3/uL (0.0-1.1) Eosinophils # (Auto) 0.1 x10^3/uL (0.0-0.7) Basophils # (Auto) 0.1 x10^3/uL (0.0-0.2) Sodium Level 141 mmol/L (136-145) Potassium Level 3.9 mmol/L (3.5-5.1) Chloride Level 104 mmol/L (98-107) Carbon Dioxide Level 27 mmol/L (21-32) Anion Gap 10 (6-14) Blood Urea Nitrogen 14 mg/dL (7-20) Creatinine 0.7 mg/dL (0.6-1.0) Estimated GFR (Cockcroft-Gault) 86.6 BUN/Creatinine Ratio 20 (6-20) Glucose Level 101 mg/dL (70-99) Calcium Level 9.0 mg/dL (8.5-10.1) Magnesium Level 2.0 mg/dL (1.8-2.4) Total Bilirubin 0.2 mg/dL (0.2-1.0) Aspartate Amino Transf (AST/SGOT) 24 U/L (15-37) Alanine Aminotransferase (ALT/SGPT) 38 U/L (14-59) Alkaline Phosphatase 89 U/L (46-116) Troponin I Quantitative < 0.017 ng/mL (0.000-0.055) Total Protein 6.9 g/dL (6.4-8.2) Albumin 4.1 g/dL (3.4-5.0) Albumin/Globulin Ratio 1.5 (1.0-1.7) Vitamin B12 Level 765 pg/mL (247-911) Thyroid Stimulating Hormone (TSH) 0.729 uIU/mL (0.358-3.74) Images Images CT HEAD WO/W CONTRAST History: Right-sided paresthesias, history of breast cancer Comparison: None. Technique: Pre and postcontrast CT imaging was performed of the head. Exposure: One or more of the following individualized dose reduction techniques were utilized for this examination: 1. Automated exposure control 2. Adjustment of the mA and/or kV according to patient size 3. Use of iterative reconstruction technique. Findings: There is no evidence of acute intracranial hemorrhage. There is no intra-axial mass effect, midline shift, extra-axial fluid collection. No convincing nodular parenchymal or leptomeningeal enhancement is identified by CT. There is probable small left frontal developmental venous anomaly. Ventricular size is within normal limits. There is mild prominence of bifrontal subarachnoid spaces. Mastoid air cells and visualized paranasal sinuses are aerated. No acute calvarial abnormality is identified. There is small left frontal osteoma above the left orbit. Impression: 1. No acute intracranial abnormality is identified. No convincing abnormal intracranial enhancement is identified by CT, smaller lesions better detected by MRI. CT angiography of the head and neck INDICATION: Right-sided paresthesias. COMPARISON: None. TECHNIQUE: Axial CT imaging of the head and neck utilizing angiography protocol and performed after the intravenous administration of 75 cc Omnipaque 350 contrast. Multiplanar reformats and 3D MIP acquisitions were obtained. Encountered areas of stenosis are measured per NASCET criteria. One or more of the following individualized dose reduction techniques were utilized for this examination: 1. Automated exposure control 2. Adjustment of the mA and/or kV according to patient size 3. Use of iterative reconstruction technique. FINDINGS: CTA NECK: Patent great vessel origins. Patent extracranial vertebral arteries. Patent bilateral common carotid arteries. Calcified and noncalcified atheromatous plaque at both carotid bulbs without flow-limiting stenosis. CTA HEAD: Patent intracranial internal carotid arteries through the terminus bilaterally. 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 No flow-limiting stenosis, branch vessel occlusion or discrete aneurysm seen to involve the middle or anterior cerebral arteries. Trifurcated anterior cerebral artery configuration noted. Patent intracranial vertebral arteries both of which contribute to basilar flow. The basilar artery is patent. No flow-limiting stenosis, branch vessel occlusion or discrete aneurysm seen to involve the posterior cerebral circulation. Patent dural sinuses and major intracerebral veins. MISCELLANEOUS: Right chest wall Port-A-Cath. Multinodular thyroid. The left thyroid lobe nodules the largest measuring 1.6 cm. The right thyroid lobe nodule measures up to 1.2 cm. No cervical chain adenopathy. Scattered degenerative changes throughout the cervical spine suspected moderate central canal stenosis at C5-C6 more so than C4-C5. Bony neural foraminal encroachment at multiple levels. Small left superior orbital rim osteoma. Small bony excrescence off the inner table of the left frontal calvarium. Very small calvarial lucency in the region of the coronal suture on the left felt unlikely to represent a significant finding given no similar abnormality seen elsewhere. IMPRESSION: 1. No vascular abnormality throughout the neck or head to account for the patient's reported paresthesias. No flow-limiting stenosis or branch vessel occlusion. 2. 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 3. Left thyroid nodule measuring just over 1.5 cm. Given size, eventual thyroid sonography is recommended. Small right thyroid lobe nodule noted. 4. Additional chronic findings as above. Assessment/Plan Assessment/Plan Impression: episode of marching White eases down the right side of the body traveling over 30 minutes, which would be highly inconsistent for stroke, transient ischemic attack, or seizure, but is quite common in patients with migraine. Patient has no history of migraine. She does describe anxiety about her cancer diagnosis and feel stressed about job situation and family matters, this could have been a panic attack for instance. 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 Recommendations: I discussed risk, benefits, alternatives, and on consideration that she has negative head CT and CTA, has a normal neurological exam now, and my suspicion for stroke or transient ischemic attack is low, okay discharge and she can have her oncologist or primary physician arranging outpatient MRI and possibly echocardiogram. Daily aspirin Follow up with me as needed. Thank you for any help with the patient's care. KELLY SAM MD May 13, 2019 11:38
[2019-05-13 11:56] VITALS: BP 140/60
--- NOTE | 2019-05-13 13:21 | NUR ---
SS following for discharge planning. SS reviewed pt chart. Pt is from home with spouse and is currently requiring oxygen. SS will continue to follow for discharge planning.
[2019-05-13 15:02] VITALS: BP 112/59
[2019-05-13] MEDS ORDERED: HEPARIN PF 500 UNIT/5 ML DISP.SYRIN. IVP ONE (16:15)
[2019-05-13] MEDS ORDERED: TRAZ150T49 PO ×2 (18:09→18:11)
--- NOTE | 2019-05-13 18:12 | PDOC3 ---
Discharge Summary Date of Admission: May 11, 2019 Date of Discharge: May 13, 2019 Follow-Up: 3-5 days Admitting Diagnosis comment: DISCHARGE DX Assessment/Plan A/P: Right leg weakness - transient, . ASA, statin. Consult neurology. Given these TIA symptoms she is at increased risk for another event. Telemetry to r/o cardiac arrhthymia as cause Right sided numbness - as above, observe Breast cancer - stage III with invasion of chest wall. This is her first head imaging. No intracranial masses noted. FEN - General diet PPX - lovenox FULL CODE Dispo - observation for TIA. Patient would prefer outpatient MRI at [facility] [place] WITH NEUROLOGY recommend she continue follow-up with Dr Isabelle Rebollar at [facility] as she plans to do with radiotherapy as well, d/c planning 26 min Vitals Vitals Vital Signs Date Time Temp Pulse Resp B/P (MAP) Pulse Ox O2 Delivery O2 Flow Rate FiO2 05/13/19 07:55 98.1 76 18 124/79 (94) 98 Nasal Cannula 4.0 98.1 Physical Exam General: Alert, Oriented X3, Cooperative, No acute distress Heart: Regular rate Abdomen: Normal bowel sounds, Soft, No tenderness, No hepatosplenomegaly, No masses Extremities: No clubbing, No cyanosis, No edema, Normal pulses, No tenderness/swelling Skin: No rashes, No breakdown, No significant lesion FINAL DIAGNOSIS Problems Medical Problems: (1) Paresthesias Status: Acute Brief Hospital Course Ms. Spencer is a 58 old [sex] who presented with [ numbness ] CONDITION AT DISCHARGE: Improved Discharge Medications Current Medications Sodium Chloride (NORMAL SALINE FLUSH for STERILE FIELD) 10 ml STK-MED ONCE .ROUTE ; Start 05/12/19 at 16:25; Stop 05/12/19 at 16:26; Status DC Iohexol (Omnipaque 350 Mg/ml) 75 ml 1X ONCE IV Last administered on 05/12/19at 18:18; Start 05/12/19 at 18:15; Stop 05/12/19 at 18:18; Status DC Info (CONTRAST GIVEN -- Rx MONITORING) 1 each PRN DAILY PRN MC SEE COMMENTS; Start 05/12/19 at 18:30; Stop 05/14/19 at 18:29 Aspirin (Children'S Aspirin) 324 mg 1X ONCE PO Last administered on 05/12/19at 19:24; Start 05/12/19 at 19:15; Stop 05/12/19 at 19:16; Status DC Trazodone HCl (Desyrel) 150 mg QHS PO Last administered on 05/12/19at 22:18; Start 05/12/19 at 22:00 Enoxaparin Sodium (Lovenox 40mg Syringe) 40 mg Q24H SQ Last administered on 05/12/19at 22:18; Start 05/12/19 at 22:00 Atorvastatin Calcium (Lipitor) 40 mg QHS PO Last administered on 05/12/19at 23:58; Start 05/12/19 at 23:45 Aspirin (Elida Aspirin) 325 mg DAILYWBKFT PO Last administered on 05/13/19at 11:04; Start 05/13/19 at 08:00 Heparin Sodium (Porcine) (Hep Lock Adult) 500 unit 1X ONCE IVP Last administered on 05/13/19at 16:46; Start 05/13/19 at 16:15; Stop 05/13/19 at 16:16; Status DC Active Scripts Active Reported Trazodone Hcl 150 Mg Tablet 1 Tab PO QHS 30 Days Trazodone Hcl 150 Mg Tablet 1 Tab PO QHS 30 Days Vital Signs Vital Signs Date Time Temp Pulse Resp B/P (MAP) Pulse Ox O2 Delivery O2 Flow Rate FiO2 05/13/19 15:02 98.9 84 18 112/59 (76) 98 98.9 05/13/19 11:56 Room Air Labs Laboratory Tests Test 05/12/19 17:20 White Blood Count 6.9 x10^3/uL (4.0-11.0) Red Blood Count 4.17 x10^6/uL (3.50-5.40) Hemoglobin 13.8 g/dL (12.0-15.5) Hematocrit 40.3 % (36.0-47.0) Mean Corpuscular Volume 97 fL (79-100) Mean Corpuscular Hemoglobin 33 pg (25-35) Mean Corpuscular Hemoglobin Concent 34 g/dL (31-37) Red Cell Distribution Width 13.6 % (11.5-14.5) Platelet Count 209 x10^3/uL (140-400) Neutrophils (%) (Auto) 66 % (31-73) Lymphocytes (%) (Auto) 23 % (24-48) Monocytes (%) (Auto) 8 % (0-9) Eosinophils (%) (Auto) 2 % (0-3) Basophils (%) (Auto) 1 % (0-3) Neutrophils # (Auto) 4.6 x10^3/uL (1.8-7.7) Lymphocytes # (Auto) 1.6 x10^3/uL (1.0-4.8) Monocytes # (Auto) 0.6 x10^3/uL (0.0-1.1) Eosinophils # (Auto) 0.1 x10^3/uL (0.0-0.7) Basophils # (Auto) 0.1 x10^3/uL (0.0-0.2) Sodium Level 141 mmol/L (136-145) Potassium Level 3.9 mmol/L (3.5-5.1) Chloride Level 104 mmol/L (98-107) Carbon Dioxide Level 27 mmol/L (21-32) Anion Gap 10 (6-14) Blood Urea Nitrogen 14 mg/dL (7-20) Creatinine 0.7 mg/dL (0.6-1.0) Estimated GFR (Cockcroft-Gault) 86.6 BUN/Creatinine Ratio 20 (6-20) Glucose Level 101 mg/dL (70-99) Calcium Level 9.0 mg/dL (8.5-10.1) Magnesium Level 2.0 mg/dL (1.8-2.4) Total Bilirubin 0.2 mg/dL (0.2-1.0) Aspartate Amino Transf (AST/SGOT) 24 U/L (15-37) Alanine Aminotransferase (ALT/SGPT) 38 U/L (14-59) Alkaline Phosphatase 89 U/L (46-116) Troponin I Quantitative < 0.017 ng/mL (0.000-0.055) Total Protein 6.9 g/dL (6.4-8.2) Albumin 4.1 g/dL (3.4-5.0) Albumin/Globulin Ratio 1.5 (1.0-1.7) Vitamin B12 Level 765 pg/mL (247-911) Thyroid Stimulating Hormone (TSH) 0.729 uIU/mL (0.358-3.74) Allergies Allergies Coded Allergies Type Severity Reaction Last Updated Verified No Known Drug Allergies 05/12/19 No Disposition/Orders: D/C to Home GUERDA MCLEOD MD May 13, 2019 18:12
== END 2019-05-13 18:30 | disposition home or self-care (01) ==
LOC: ER 14:58 → 6 SOUTH 18:30
PROVIDERS: ADMIT Internal Medicine; ATTEND Internal Medicine
DX: M62.81 Muscle weakness (generalized) (principal); R20.0 Anesthesia of skin; Z85.3 Personal history of malignant neoplasm of breast; Z98.890 Other specified postprocedural states
CPT/HCPCS: 36415; 70470; 70496; 70498; 71045; 80053; 82607; 83735; 84443; 84484; 85025; 93005; 96372; 96374; 99284; G0378; J1650; Q9967; G0379